=== PATIENT | male | born 2005 | race African-American/Black ===

== ENCOUNTER 2024-05-07 19:16 | Emergency (ER) | payer MEDICAID ==
[~2024-05-07] VITALS: Ht 185.4 cm; Wt 93.0 kg
[2024-05-07 19:19] VITALS: BP 160/100; PULSE 86; RESP 18; TEMP 99.1; O2SAT 99
[2024-05-08 00:35] LABS: CLARITY URINE CLEAR (CLEAR); COLOR URINE DARK YELLOW (YELLOW); GLUCOSE URINE NEGATIVE (NEGATIVE); KETONES URINE 2+ (NEGATIVE); LEUKOCYTE ESTERASE URINE TRACE (NEGATIVE); NITRITE URINE NEGATIVE (NEGATIVE); OCCULT BLOOD URINE NEGATIVE (NEGATIVE); PH URINE 6.5 (4.5-8.0); PROTEIN URINE 1+ (NEGATIVE); SPECIFIC GRAVITY URINE 1.029 (1.005-1.030)
[2024-05-08 00:51] LABS: BACTERIA URINE TRACE; RBC URINE NONE SEEN /hpf (0-2); SQUAMOUS EPITHELIAL CELL URINE FEW /lpf (RARE/1+)
[2024-05-08] MEDS ORDERED: IBUP-2028 MT (01:01)
[2024-05-08] MEDS ORDERED: NITR-87 MT (01:01)
== END 2024-05-08 02:36 | disposition home or self-care (01) ==
LOC: ER 19:16
DX: N39.0 Urinary tract infection, site not specified (principal); I10 Essential (primary) hypertension
CPT/HCPCS: 81003; 99283